=== PATIENT | male | born 1970 | race American Indian/Alaskan Native ===

== ENCOUNTER 2018-05-30 08:11 | Emergency (ER) | payer SELFPAY ==
[2018-05-30 08:28] VITALS: BP 176/87
[2018-05-30] MEDS ORDERED: NACL 0.9% 1000 ML 1,000 ML IV ONE (08:29)
[2018-05-30 09:07] LABS: Basophils % (Auto) 0.4 % (0.0-1.8); Eosinophils # (Auto) 0.1 K/mm3 (0.0-0.4); Eosinophils % (Auto) 1.8 % (0.0-4.3); Hematocrit 43.6 % (35.5-45.6); Hemoglobin 14.4 gm/dl (11.8-15.2); Lymphocytes # (Auto) 1.3 K/mm3 (1.2-5.4); Lymphocytes % (Auto) 18.1 % (13.4-35.0); Mean Corpuscular HGB Conc 33 % (32-34); Mean Corpuscular Hemoglobin 31 pg (28-32); Mean Corpuscular Volume 94 fl (84-94); Monocytes # (Auto) 0.7 K/mm3 (0.0-0.8); Monocytes % (Auto) 9.5 % (0.0-7.3); Platelet Count 249 K/mm3 (140-440); Red Blood Count 4.62 M/mm3 (3.65-5.03); Red Cell Distribution Width 13.1 % (13.2-15.2)
[2018-05-30 09:19] LABS: Bilirubin,Urine NEG (Negative); Blood,Urine NEG (Negative); Color,Urine Yellow (Yellow); Protein,Urine <15 mg/dL mg/dL (Negative); Urobilinogen,Urine < 2.0 mg/dL (<2.0); WBC,Urine < 1.0 /HPF (0.0-6.0)
[2018-05-30 09:21] LABS: Alanine Aminotransferase 19 units/L (7-56); Albumin 4.4 g/dL (3.9-5); BUN/Creatinine Ratio 19; Blood Urea Nitrogen 13 mg/dL (9-20); Calcium 9.9 mg/dL (8.4-10.2); Hemolysis Index 11
[2018-05-30] MEDS ORDERED: TORADOL IM ONE (09:49)
[2018-05-30] MEDS ORDERED: ZESTRIL PO ONE (09:49)
[2018-05-30] MEDS ORDERED: GLUCOTROL PO ONE (09:49)
[2018-05-30] MEDS ORDERED: ZOFRAN ODT PO ONE (09:50)
--- NOTE | 2018-05-30 10:03 | Emergency Department Report ---
Blank Doc - Documentation Documentation: 48-year-old male presents to the hospital complains of right upper quadrant abdominal pain since last name. Pain is Sharp, intermittent with associated nausea. No other associated factors reported. No surgical history. History of "gallbladder issues" but denies history of gallstones. Patient did not take his glipizide and lisinopril this a.m. Right upper quadrant abdominal tenderness Labs reviewed Meds ordered: Toradol 60 mg IM, Zofran, glipizide 10 mg, lisinopril 10 mg Abdominal ultrasound ordered Mid-level to follow
--- NOTE | 2018-05-30 10:29 | Ultrasound Report ---
Abdominal sonogram: History: Right upper quadrant pain. Findings: Fatty liver. No intrahepatic or extrahepatic duct dilatation. Common bile duct is diameter 4.4 mm. Gallbladder wall thickness 2.2 mm. Sludge within contracted gallbladder. Small calculus cannot be excluded. Right kidney 12.8 x 5.9 x 6.2 cm. Cortical thickness 1.9 cm. Left kidney 12.1 x 5.5 x 5.9 cm. Cortical thickness 2.2 cm. Spleen not visualized due to bowel gas. Pancreas obscured by bowel gas. Impression: Thick bile or sludge within the contracted gallbladder. Fatty liver.
--- NOTE | 2018-05-30 11:05 | Emergency Department Report ---
ED Abdominal Pain HPI - General Chief Complaint: Abdominal Pain Stated Complaint: PAIN ON RIGHT SIDE Time Seen by Provider: 05/30/18 09:42 Source: patient Mode of arrival: Ambulatory Limitations: No Limitations - History of Present Illness Initial Comments: This is a 48-year-old -Togol[place] male that presents with right upper quadrant abdominal pain since last night. Patient states pain is sharp and intermittent and right upper quadrant. He has a history of hypertension and diabetes type 2. Patient states he had symptoms similar to this a couple years ago and he think it was related to gallbladder. Patient reports having nausea without vomiting. Denies chest pain, fever, shortness of breath, burning sensation, and diarrhea. Severity scale (0 -10): 8 - Related Data Previous Rx's Medication Instructions Recorded Last Taken Type Naproxen [Naprosyn] 500 mg PO BID #15 tablet 05/30/18 Unknown Rx Allergies Allergy/AdvReac Type Severity Reaction Status Date / Time No Known Allergies Allergy Verified 05/30/18 09:42 ED Review of Systems ROS: Stated complaint: PAIN ON RIGHT SIDE Other details as noted in HPI ED Past Medical Hx - Past Medical History Hx Hypertension: Yes Hx Diabetes: Yes - Surgical History Past Surgical History?: No - Social History Smoking Status: Former Smoker Substance Use Type: None - Medications Home Medications: Home Medications Medication Instructions Recorded Confirmed Last Taken Type Naproxen [Naprosyn] 500 mg PO BID #15 tablet 05/30/18 Unknown Rx ED Physical Exam - General Limitations: No Limitations ED Course Vital Signs 05/30/18 05/30/18 08:25 11:00 Temperature 98.3 F Pulse Rate 95 H Respiratory 16 16 Rate Blood Pressure 176/87 O2 Sat by Pulse 96 Oximetry ED Medical Decision Making - Lab Data Result diagrams: 05/30/18 08:46 05/30/18 08:46 - Radiology Data Radiology results: report reviewed Abdominal sonogram: History: Right upper quadrant pain. Findings: Fatty liver. No intrahepatic or extrahepatic duct dilatation. Common bile duct is diameter 4.4 mm. Gallbladder wall thickness 2.2 mm. Sludge within contracted gallbladder. Small calculus cannot be excluded. Right kidney 12.8 x 5.9 x 6.2 cm. Cortical thickness 1.9 cm. Left kidney 12.1 x 5.5 x 5.9 cm. Cortical thickness 2.2 cm. Spleen not visualized due to bowel gas. Pancreas obscured by bowel gas. Impression: Thick bile or sludge within the contracted gallbladder. Fatty liver. - Medical Decision Making Thick bile or sludge within the contracted gallbladder. Fatty liver. Critical care attestation.: If time is entered above; I have spent that time in minutes in the direct care of this critically ill patient, excluding procedure time. ED Disposition Clinical Impression: Right upper quadrant abdominal pain, Gallbladder stone with nonacute cholecystitis Disposition: TO HOME OR SELFCARE Is pt being admited?: No Does the pt Need Aspirin: No Condition: Stable Instructions: Biliary Colic (ED), Acute Nausea and Vomiting (ED), Acute Abdominal Pain (ED) Additional Instructions: Follow-up with general surgery. Prescriptions: Naproxen [Naprosyn] 500 mg PO BID #15 tablet Referrals: CARLEY LE MD [Staff Physician] - 3-5 Days [facility] [Provider Group] - 3-5 Days Forms: Work/School Release Form(ED) Time of Disposition: 11:14 Print Language: BELARUSIAN
== END 2018-05-30 11:20 | disposition home or self-care (01) ==
LOC: ED 08:11
DX: K80.60 Calculus of gallbladder and bile duct with cholecystitis, unspecified, without obstruction (principal); I10 Essential (primary) hypertension; E11.9 Type 2 diabetes mellitus without complications; Z87.891 Personal history of nicotine dependence
CPT/HCPCS: 36415; 76700; 80053; 81001; 83690; 85025; 96372; 99284; J1885; Q0162

== ENCOUNTER 2020-06-14 06:00 | Inpatient (IN) | payer SELFPAY ==
[2020-06-14 08:39] LABS: Basophils % (Auto) 0.4 % (0.0-1.8); Eosinophils # (Auto) 0.1 K/mm3 (0.0-0.4); Eosinophils % (Auto) 1.4 % (0.0-4.3); Hematocrit 43.7 % (35.5-45.6); Hemoglobin 14.3 gm/dl (11.8-15.2); Lymphocytes # (Auto) 1.5 K/mm3 (1.2-5.4); Lymphocytes % (Auto) 19.8 % (13.4-35.0); Mean Corpuscular HGB Conc 33 % (32-34); Mean Corpuscular Volume 96 fl (84-94); Monocytes # (Auto) 0.8 K/mm3 (0.0-0.8); Monocytes % (Auto) 10.9 % (0.0-7.3); Platelet Count 258 K/mm3 (140-440); Red Blood Count 4.55 M/mm3 (3.65-5.03); Red Cell Distribution Width 13.2 % (13.2-15.2)
[2020-06-14 08:47] LABS: INR 0.91 (0.87-1.13)
[2020-06-14 08:49] LABS: Partial Thromboplastin Time 27.8 Sec. (24.2-36.6)
[2020-06-14 09:03] LABS: Alanine Aminotransferase 18 units/L (7-56); Albumin 4.2 g/dL (3.9-5)
--- NOTE | 2020-06-14 09:04 | XRay Report ---
CHEST 1 VIEW INDICATION / CLINICAL INFORMATION: hypertension,cp. COMPARISON: None available. FINDINGS: SUPPORT DEVICES: None. HEART / MEDIASTINUM: No significant abnormality. LUNGS / PLEURA: No significant pulmonary or pleural abnormality. No pneumothorax. ADDITIONAL FINDINGS: No significant additional findings. IMPRESSION: 1. No acute findings. Signer Name: Jhony Baker MD Signed: 06/14/2020 9:00 AM Workstation Name: [id number]
--- NOTE | 2020-06-14 09:04 | Emergency Department Report ---
ED Chest Pain HPI - General Chief Complaint: Back Pain/Injury Stated Complaint: BACK PAIN Time Seen by Provider: 06/14/20 08:01 Source: patient Mode of arrival: Ambulatory Limitations: No Limitations - History of Present Illness Initial Comments: This is a 50-year-old male who was triaged as back pain. On my encounter he clearly has anterior chest pain which he describes as sharp and radiating to the left subscapular area. He states he has had pain intermittently for 1 week. He is not complaining of pain at the time of my encounter or on my reassessment. He does not describe pain as pleuritic. He does not describe any respiratory symptoms. He does not relate any acute sweating, nausea, vomiting or cough. He has had no recent travel. He has significant risk factors for coronary artery disease to include diabetes and hypertension. He takes metformin and lisinopril. He denies a family history of VTE or CAD. He states he had a stress test a very long time ago. MD Complaint: chest pain -: week(s) Onset: during rest Pain Location: substernal Pain Radiation: back (As above) Severity: moderate Quality: sharp Improves With: nothing Worsens With: nothing re: denies: nausea, vomting, diaphoresis Other Symptoms: denies: cough, fever, syncope - Related Data Previous Rx's Medication Instructions Recorded Last Taken Type Naproxen [Naprosyn] 500 mg PO BID #15 tablet 05/30/18 Unknown Rx Allergies Allergy/AdvReac Type Severity Reaction Status Date / Time No Known Allergies Allergy Verified 05/30/18 09:42 Heart Score - HEART Score History: Moderately suspicious EKG: Non-specific Age: 45-65 Risk factors: > 3 risk factors or hx of atherosclerotic disease Troponin: < normal limit HEART Score: 5 - Critical Actions Critical Actions: 4-6 pts:12-16.6% risk of adverse cardiac event. Should be admitted ED Review of Systems ROS: Stated complaint: BACK PAIN Other details as noted in HPI Constitutional: denies: chills, fever Eyes: denies: eye pain, eye discharge, vision change ENT: denies: ear pain, throat pain Respiratory: denies: cough, shortness of breath, wheezing Cardiovascular: as per HPI, chest pain. denies: palpitations Endocrine: no symptoms reported Gastrointestinal: denies: abdominal pain, nausea, diarrhea Genitourinary: denies: urgency, dysuria Musculoskeletal: as per HPI, back pain. denies: joint swelling, arthralgia Skin: denies: rash, lesions Neurological: denies: headache, weakness, paresthesias Psychiatric: denies: anxiety, depression Hematological/Lymphatic: denies: easy bleeding, easy bruising ED Past Medical Hx - Past Medical History Previous Medical History?: Yes Hx Hypertension: Yes Hx Diabetes: Yes - Surgical History Past Surgical History?: Yes Additional Surgical History: Back - Social History Smoking Status: Current Every Day Smoker Substance Use Type: Alcohol - Medications Home Medications: Home Medications Medication Instructions Recorded Confirmed Last Taken Type Naproxen [Naprosyn] 500 mg PO BID #15 tablet 05/30/18 Unknown Rx ED Physical Exam - General Limitations: No Limitations General appearance: alert, in no apparent distress - Head Head exam: Present: atraumatic, normocephalic - Eye Eye exam: Present: normal appearance. Absent: scleral icterus - ENT ENT exam: Present: mucous membranes moist - Neck Neck exam: Present: normal inspection - Respiratory Respiratory exam: Present: normal lung sounds bilaterally. Absent: respiratory distress - Cardiovascular Cardiovascular Exam: Present: regular rate, normal rhythm. Absent: systolic murmur, diastolic murmur, rubs, gallop - GI/Abdominal GI/Abdominal exam: Present: soft, normal bowel sounds. Absent: distended, tenderness, guarding, rebound, rigid - Rectal Rectal exam: Present: deferred - Extremities Exam Extremities exam: Present: normal inspection. Absent: pedal edema, calf tenderness - Back Exam Back exam: Present: normal inspection. Absent: CVA tenderness (R), CVA tenderness (L) - Neurological Exam Neurological exam: Present: alert, oriented X3, CN II-XII intact. Absent: motor sensory deficit - Psychiatric Psychiatric exam: Present: normal affect, normal mood - Skin Skin exam: Present: warm, dry, intact, normal color. Absent: rash ED Course Vital Signs 06/14/20 06/14/20 06/14/20 06:11 08:40 08:45 Temperature 98.6 F Pulse Rate 97 H 89 94 H Respiratory 18 16 16 Rate Blood Pressure 167/98 179/104 O2 Sat by Pulse 98 97 99 Oximetry 06/14/20 06/14/20 06/14/20 09:00 09:15 09:40 Temperature Pulse Rate 88 89 98 H Respiratory 21 20 Rate Blood Pressure 171/100 174/100 174/98 O2 Sat by Pulse 97 98 Oximetry - Reevaluation(s) Reevaluation #1: No complaint of chest pain. Blood pressure still high after Nitropaste. Given aspirin. Discussed with hospitalist. Dr. Santos to admit. 06/14/20 10:41 MANPREET score - Manpreet Score Age > 65: (0) No Aspirin use within the Past 7 Days: (0) No 3 or more CAD Risk Factors: (1) Yes 2 or more Angina events in past 24 hrs: (0) No Known CAD with more than 50% Stenosis: (0) No Elevated Cardiac Markers: (0) No ST Deviation Greater than 0.5mm: (1) Yes MANPREET Score: 2 ED Medical Decision Making - Lab Data Result diagrams: 06/14/20 08:26 Laboratory Results - last 24 hr 06/14/20 06/14/20 06/14/20 08:26 08:26 08:26 WBC 7.4 RBC 4.55 Hgb 14.3 Hct 43.7 MCV 96 H MCH 31 MCHC 33 RDW 13.2 Plt Count 258 Lymph % (Auto) 19.8 [place] % (Auto) 10.9 H Eos % (Auto) 1.4 Baso % (Auto) 0.4 Lymph # 1.5 [place] # 0.8 Eos # 0.1 Baso # 0.0 Seg Neutrophils % 67.5 Seg Neutrophils # 5.0 PT 12.3 INR 0.91 APTT 27.8 D-Dimer 135.00 Magnesium 2.10 Total Bilirubin 0.30 Direct Bilirubin < 0.2 Indirect Bilirubin 0.1 AST 14 ALT 18 Alkaline Phosphatase 75 CK-MB (CK-2) 2.0 Troponin T < 0.010 NT-Pro-B Natriuret Pep 68.09 Total Protein 6.7 Albumin 4.2 Albumin/Globulin Ratio 1.7 - EKG Data -: EKG Interpreted by Me EKG shows normal: sinus rhythm, axis, intervals, QRS complexes, ST-T waves Rate: normal - EKG Data Interpretation: no acute changes, other (Patient had J-point elevation without reciprocal changes in the anterior leads. This may be due to lead placement. And is nonspecific) - Radiology Data Radiology results: report reviewed (Normal chest x-ray), image reviewed Critical care attestation.: If time is entered above; I have spent that time in minutes in the direct care of this critically ill patient, excluding procedure time. ED Disposition Clinical Impression: Uncontrolled hypertension Chest pain Qualifiers: Chest pain type: unspecified Qualified Code(s): R07.9 - Chest pain, unspecified Hyperglycemia due to type 2 diabetes mellitus Qualifiers: Diabetes mellitus terminal supervisor insulin use: without terminal supervisor use Qualified Code(s): E11.65 - Type 2 diabetes mellitus with hyperglycemia Disposition: OP ADMIT IP TO THIS HOSP Is pt being admited?: Yes Does the pt Need Aspirin: Yes Condition: Stable Instructions: Chest Pain (ED), Diabetes Mellitus Type 2 in Adults (ED), Hypertension (ED) Time of Disposition: 10:44
[2020-06-14] MEDS ORDERED: ASPIRIN 325 MG TAB PO ONE (09:25)
[2020-06-14] MEDS ORDERED: NITROGLYCERIN 2% OINT 1 GM TP ONE (09:25)
[2020-06-14 09:28] LABS: Bilirubin,Direct < 0.2 mg/dL (0-0.2)
[2020-06-14] MEDS ORDERED: INSULIN REGULAR, HUMAN 100 UNITS/1 ML IV ONE (10:43)
--- NOTE | 2020-06-14 12:36 | History and Physical Report ---
History of Present Illness Date of examination: 06/14/20 Date of admission: 06/14/20 10:40 Chief complaint: Chest pain, left shoulder pain, and back pain for the last 3 to 4 days History of present illness: 50-year-old male patient with significant past medical history of hypertension diabetes mellitus on medications presented to the emergency room with Left-sided chest pain and left shoulder and subscapular pain intermittently for the last 1 week. Patient grades his pain between 7-8 over 10 at its peak, intermittent lasts about 5 to 10 minutes, sometimes associated with movement Radiates from chest to left shoulder ,not associated with nausea vomiting or yazmin phoresis. Patient denies shortness of breath Never had similar symptoms in the past, no history of trauma. Patient denies orthopnea or paroxysmal nocturnal dyspnea Has history of cigar smoking, denies family history of coronary artery disease Initial work-up in the ED for set of cardiac enzymes negative, chest x-ray no acute abnormality noted Past History Past Medical History: diabetes, hypertension Past Surgical History: Other (Back surgery) Social history: lives with family, smoking (Cigar smoking every day), alcohol abuse (Social issues). denies: prescription drug abuse Family history: hypertension Medications and Allergies Allergies Allergy/AdvReac Type Severity Reaction Status Date / Time No Known Allergies Allergy Verified 05/30/18 09:42 Home Medications Medication Instructions Recorded Confirmed Last Taken Type glipiZIDE XL [Glucotrol Xl] 10 mg PO QDAY 06/14/20 06/14/20 1 Day Ago History ~06/13/20 AtorvaSTATin [Lipitor] 40 mg PO QHS #30 tablet 06/15/20 Unknown Rx Ibuprofen [Motrin 400 MG tab] 400 mg PO Q8H PRN #30 tablet 06/15/20 Unknown Rx carvediloL [Coreg] 12.5 mg PO BID #60 tablet 06/15/20 Unknown Rx lisinopriL [Zestril TAB] 20 mg PO QDAY #30 06/15/20 Unknown Rx Review of Systems Constitutional: no weight loss, no weight gain, no fever, no chills Ears, nose, mouth and throat: no nasal congestion, no nasal discharge Cardiovascular: chest pain, no orthopnea, no palpitations, no rapid/irregular heart beat Respiratory: no cough, no shortness of breath Gastrointestinal: no abdominal pain, no nausea, no vomiting Genitourinary Male: no dysuria, no hematuria Musculoskeletal: myalgias, other (Shoulder pain), no arthritis Integumentary: no rash, no lesions Neurological: no seizures, no syncope Psychiatric: no anxiety, no depression Endocrine: no cold intolerance, no heat intolerance Hematologic/Lymphatic: no easy bruising, no easy bleeding Allergic/Immunologic: no urticaria, no allergic rhinitis Exam - Constitutional Vitals: Temp Pulse Resp BP Pulse Ox 98.6 F 95 H 23 159/90 97 06/14/20 06:11 06/14/20 12:15 06/14/20 12:15 06/14/20 12:15 06/14/20 12:15 General appearance: Present: no acute distress, well-nourished, obese - EENT Eyes: Present: PERRL, EOM intact - Neck Neck: Present: supple, normal ROM - Respiratory Respiratory effort: normal Respiratory: bilateral: diminished, negative: rales, rhonchi, wheezing - Cardiovascular Rhythm: regular Heart Sounds: Present: S1 & S2 - Extremities Extremities: no ischemia, No edema - Abdominal General gastrointestinal: Present: soft, non-tender, non-distended, normal bowel sounds - Integumentary Integumentary: Present: clear, warm - Musculoskeletal Musculoskeletal: strength equal bilaterally - Psychiatric Psychiatric: appropriate mood/affect, cooperative - Neurologic Neurologic: moves all extremities HEART Score - HEART Score EKG: Non-specific Age: 45-65 Risk factors: > 3 risk factors or hx of atherosclerotic disease Troponin: Troponin T < 0.010 ng/mL (0.00-0.029) 06/14/20 08:26 Troponin: < normal limit - Critical Actions Critical Actions: 4-6 pts:12-16.6% risk of adverse cardiac event. Should be admitted Results - Labs CBC & Chem 7: 06/14/20 08:26 Labs: Abnormal lab results 06/14/20 06/14/20 Range/Units 08:26 11:07 MCV 96 H (84-94) fl [place] % (Auto) 10.9 H (0.0-7.3) % POC Glucose 222 H (70-105) Assessment and Plan --Chest pain; with multiple risk factors, evaluate for acute coronary syndrome Tobacco use, diabetes, hypertension, male >50 years of age, dyslipidemia Serial cardiac enzyme, EKG Echocardiogram for LV function ejection fraction Possible stress test tomorrow due to risk factors Cardiology consult --Hypertension; moderate control Continue lisinopril, PRN medications --Type 2 diabetes mellitus; Accu-Chek sliding scale coverage ADA diet Hemoglobin A1c, oral hypoglycemics, insulin as needed --Dyslipidemia; statin, low-cholesterol diet --Ongoing tobacco use[cigars] smoking cessation Advised nicotine patch as needed --Obese; BMI 33.9 Needs weight reduction when medically stable Closely monitor patient and adjust management as needed Follow cardiology evaluation, follow stress test
[2020-06-14] MEDS ORDERED: NITROGLYCERIN 0.4 MG TAB SUBL SL PRN (12:57)
[2020-06-14] MEDS ORDERED: MORPHINE 2 MG/1 ML INJ IV PRN (12:57)
[2020-06-14 14:01] LABS: Creatine Kinase MB 2.1 ng/mL (0.0-4.0)
[2020-06-14 14:03] LABS: Chol/HDL Ratio 4.41 %; HDL Cholesterol 43 mg/dL (40-59); LDL Cholesterol,Direct 134 mg/dL (50-130)
[2020-06-14] MEDS: INSULIN LISPRO 100 UNIT/ML SUB-Q SCH ×2 (16:29→21:36)
[2020-06-14] MEDS ORDERED: KETOROLAC 30 MG/1 ML INJ IV PRN (20:37)
[2020-06-14] MEDS: carvediloL 6.25 MG TAB PO SCH (21:02)
[2020-06-14] MEDS ORDERED: ENOXAPARIN 40 MG/0.4 ML INJ SUB-Q SCH (22:00)
[2020-06-15] MEDS: INSULIN LISPRO 100 UNIT/ML SUB-Q SCH ×2 (07:30→12:25)
[2020-06-15] MEDS ORDERED: REGADENOSON 0.4 MG/5 ML INJ IV ONE (07:58)
--- NOTE | 2020-06-15 09:43 | Consultation ---
History of Present Illness Consult date: 06/15/20 Consult reason: chest pain History of present illness: 50-year-old male patient with significant past medical history of hypertension diabetes mellitus on medications presented to the emergency room with Left-sided chest pain and left shoulder and subscapular pain intermittently for the last 1 week. Patient grades his pain between 7-8 over 10 at its peak, intermittent lasts about 5 to 10 minutes, sometimes associated with movement Radiates from chest to left shoulder ,not associated with nausea vomiting or diaphoresis. Patient denies shortness of breath Never had similar symptoms in the past, no history of trauma. Patient denies orthopnea or paroxysmal nocturnal dyspnea Has history of cigar smoking, denies family history of coronary artery disease. Patient in stress lab for stress test,no chest pain now.EKG is unremarkable. Past History Past Medical History: diabetes, hypertension Past Surgical History: Other (Back surgery) Social history: lives with family, smoking (Cigar smoking every day), alcohol abuse (Social issues). denies: prescription drug abuse Family history: hypertension Medications and Allergies Allergies Allergy/AdvReac Type Severity Reaction Status Date / Time No Known Allergies Allergy Verified 05/30/18 09:42 Home Medications Medication Instructions Recorded Confirmed Last Taken Type glipiZIDE XL [Glucotrol Xl] 10 mg PO QDAY 06/14/20 06/14/20 1 Day Ago History ~06/13/20 lisinopriL [Zestril TAB] 10 mg PO QDAY 06/14/20 06/14/20 1 Day Ago History ~06/13/20 Active Meds: Active Medications Aspirin (Aspirin) 325 mg PO QDAY [facility] Atorvastatin Calcium (Lipitor) 40 mg PO QHS [facility] Last Admin: 06/14/20 21:02 Dose: 40 mg Documented by: Carvedilol (Coreg) 6.25 mg PO BID [facility] Last Admin: 06/14/20 21:02 Dose: 6.25 mg Documented by: Enoxaparin Sodium (Enoxaparin) 40 mg SUB-Q QDAY@2200 [facility] Last Admin: 06/14/20 21:03 Dose: 40 mg Documented by: Glipizide (Glucotrol Xl) 10 mg PO QDAY [facility] Insulin Human Lispro (Humalog) 0 unit SUB-Q [facility]; Protocol Last Admin: 06/14/20 21:36 Dose: 2 unit Documented by: Ketorolac Tromethamine (Toradol) 15 mg IV Q6HR PRN PRN Reason: Pain , Severe (7-10) Stop: 06/20/20 00:00 Last Admin: 06/14/20 21:02 Dose: 15 mg Documented by: Lisinopril (Zestril) 10 mg PO QDAY MICHELLE Morphine Sulfate (Morphine) 2 mg IV Q4H PRN PRN Reason: Pain, Moderate (4-6) Last Admin: 06/14/20 19:55 Dose: 2 mg Documented by: Nitroglycerin (Nitrostat) 0.4 mg SL .Q5MIN PRN PRN Reason: Chest Pain Review of Systems Constitutional: no weight loss Ears, nose, mouth and throat: no ear discharge Cardiovascular: chest pain, no orthopnea, no rapid/irregular heart beat Genitourinary Male: no hematuria Integumentary: no rash Neurological: no seizures Endocrine: no heat intolerance Hematologic/Lymphatic: no easy bleeding Allergic/Immunologic: no urticaria Physical Examination Vital Signs Temp Pulse Resp BP Pulse Ox 98.6 F 97 H 18 167/98 98 06/14/20 06:11 06/14/20 06:11 06/14/20 06:11 06/14/20 06:11 06/14/20 06:11 General appearance: no acute distress HEENT: Positive: PERRL Neck: Positive: neck supple Cardiac: Positive: Reg Rate and Rhythm Lungs: Positive: Normal Exam Neuro: Positive: Grossly Intact Abdomen: Positive: Unremarkable Male genitourinary: Positive: deferred Skin: Positive: Clear Extremities: Absent: edema Results 06/14/20 08:26 Cardiac Enzymes 06/14/20 Range/Units 13:27 CK-MB (CK-2) 2.1 (0.0-4.0) ng/mL Lipids 06/14/20 Range/Units 13:27 Triglycerides 122 (2-149) mg/dL Cholesterol 190 (50-199) mg/dL HDL Cholesterol 43 (40-59) mg/dL Cholesterol/HDL Ratio 4.41 % Laboratory Tests 06/14/20 06/14/20 08:26 13:27 Total Creatine Kinase 113 99 CK-MB (CK-2) 2.0 2.1 CK-MB (CK-2) Rel Index 1.7 2.1 Troponin T < 0.010 < 0.010 LDL Cholesterol Direct 134 H EKG interpretations - Telemetry EKG Rhythm: Sinus Rhythm Normal tracing: normal tracing Assessment and Plan 50 yo afroamerican gentleman with hx. of hypertension,diabetes mellitus and cigar smoking was admitted with back/shoulder pains of few weeks,not related to exertion.EKG showed S.R,unremarkable.Cardiac enzymes including Troponin and CK- MB are in normal range. Patient had iv Lexiscan MPI this AM,results pending. Recommend risk factor modification ,namely control of B.P and lipids in addition to smoking cessation. Etioology of his chest pain is not clear. Patient being followed at [facility]. - Patient Problems (1) Hyperglycemia due to type 2 diabetes mellitus Current Visit: Yes Status: Acute Qualifiers: Diabetes mellitus exterminator helper termite insulin use: without alf use Qualified Code(s): E11.65 - Type 2 diabetes mellitus with hyperglycemia (2) Uncontrolled hypertension Current Visit: Yes Status: Acute (3) Hyperlipidemia Current Visit: Yes Status: Acute (4) Hyperlipidemia LDL goal <70 Current Visit: Yes Status: Acute
[2020-06-15] MEDS ORDERED: LISINOPRIL 10 MG TAB PO SCH (10:00)
[2020-06-15] MEDS ORDERED: ASPIRIN 325 MG TAB PO SCH (10:00)
[2020-06-15] MEDS: carvediloL 6.25 MG TAB PO SCH (12:20)
--- NOTE | 2020-06-15 14:17 | Discharge Summary ---
Providers - Providers Date of Admission: 06/14/20 10:40 Date of discharge: 06/15/20 Attending physician: ROSA BONILLA 06/14/20 17:59 Consult to Physician [CONS] Routine Comment: Consulting Provider: CISCO TORRES Physician Instructions: Reason For Exam: Chest pain/multiple risk factors Primary care physician: [facility], Hospitalization Reason for admission: Chest pain and shoulder pain Condition: Stable Pertinent studies: Chest x-ray no abnormality Echocardiogram; normal ejection fraction, LVH Procedures: Stress test, negative ischemia, normal EF Hospital course: 50-year-old male patient with significant past medical history of hypertension diabetes mellitus on medications presented to the emergency room with Left-sided chest pain and left shoulder and subscapular pain intermittently for the last 1 week. Patient grades his pain between 7-8 over 10 at its peak, intermittent lasts about 5 to 10 minutes, sometimes associated with movement Radiates from chest to left shoulder ,not associated with nausea vomiting or diaphoresis. Patient denies shortness of breath Never had similar symptoms in the past, no history of trauma. Patient denies orthopnea or paroxysmal nocturnal dyspnea Has history of cigar smoking, denies family history of coronary artery disease Patient was admitted symptomatically managed, in view of patient's multiple risk factors stress test was done, negative for ischemia normal ejection fraction Cardiology evaluated advised medical management follow-up outpatient Today patient is comfortable no new complaints vital signs stable physical examination unremarkable Smoking cessation counseling done Discharge diagnosis; --Atypical chest pain; probably noncardiac Musculoskeletal, costochondritis anti-inflammatories and pain medications --Musculoskeletal pain/costochondritis Cause of chest pain, pain medications --Hypertension; moderate control Antihypertensives adjusted, prescriptions given --Type 2 diabetes mellitus; Accu-Chek sliding scale coverage ADA diet Hemoglobin A1c, oral hypoglycemics, insulin as needed --Dyslipidemia; statin, low-cholesterol diet --Ongoing tobacco use[cigars] smoking cessation Advised nicotine patch as needed --Obese; BMI 33.9 Needs weight reduction when medically stable Cleared by cardiology, patient is stable for discharge Disposition: TO HOME OR SELFCARE Time spent for discharge: 32 min Core Measure Documentation - Palliative Care Palliative Care/ Comfort Measures: Not Applicable - Core Measures Any of the following diagnoses?: none Exam - Constitutional Vitals: Temp Pulse Resp BP Pulse Ox 98.0 F 90 20 178/106 97 06/15/20 11:31 06/15/20 12:59 06/15/20 11:31 06/15/20 11:31 06/15/20 11:31 General appearance: Present: no acute distress, well-nourished - EENT Eyes: Present: PERRL, EOM intact - Neck Neck: Present: supple, normal ROM - Respiratory Respiratory effort: normal Respiratory: bilateral: diminished, negative: rales, rhonchi, wheezing - Cardiovascular Rhythm: regular Heart Sounds: Present: S1 & S2 - Extremities Extremities: no ischemia, No edema Extremity abnormal: edema - Abdominal General gastrointestinal: Present: soft, non-tender, non-distended, normal bowel sounds - Integumentary Integumentary: Present: clear, warm - Musculoskeletal Musculoskeletal: strength equal bilaterally - Psychiatric Psychiatric: appropriate mood/affect, cooperative - Neurologic Neurologic: moves all extremities Plan Activity: no restrictions Diet: diabetic, other (Cardiac diet) Special Instructions: smoking cessation Additional Instructions: Advised smoking cessation, nicotine patch as needed. If you have worsening symptoms contact MD or go to emergency room. Advised to follow plate maker in 1 to 2 weeks should you have recurrent symptoms of chest pain Follow up with: ROSARIO TYLERSARATOGA MD [facility] [Primary Care Provider] - 7 Days KEYUR MCKENZIE MD [Staff Physician] - 14 Days Prescriptions: carvediloL [Coreg] 12.5 mg PO BID #60 tablet AtorvaSTATin [Lipitor] 40 mg PO QHS #30 tablet Ibuprofen [Motrin 400 MG tab] 400 mg PO Q8H PRN #30 tablet PRN Reason: Pain, Moderate (4-6) lisinopriL [Zestril TAB] 20 mg PO QDAY #30
[2020-06-15 17:22] VITALS: BP 171/98
== END 2020-06-15 16:50 | disposition home or self-care (01) | DRG 206 ==
LOC: ED 06:00 → 4A 10:40
PROVIDERS: ADMIT Internal Medicine; ATTEND Internal Medicine
DX: M94.0 Chondrocostal junction syndrome [Tietze] (principal); I10 Essential (primary) hypertension; R07.89 Other chest pain; E78.5 Hyperlipidemia, unspecified; E66.9 Obesity, unspecified; E11.65 Type 2 diabetes mellitus with hyperglycemia; F17.200 Nicotine dependence, unspecified, uncomplicated; Z71.6 Tobacco abuse counseling; Z82.49 Family history of ischemic heart disease and other diseases of the circulatory system; Z68.33 Body mass index [BMI] 33.0-33.9, adult; Z79.899 Other long term (current) drug therapy; Z72.89 Other problems related to lifestyle
CPT/HCPCS: 36415; 71045; 78452; 80061; 80076; 82550; 82553; 82962; 83735; 83880; 84484; 85025; 85379; 85610; 85730; 93005; 93017; 93306; G0378; A9270-GY; A9502; J1650; J1815; J1885; J2270; J2785

== ENCOUNTER 2021-07-06 04:18 | Emergency (ER) | payer SELFPAY ==
[2021-07-06 04:57] VITALS: BP 174/87
[2021-07-06 06:22] LABS: Basophils % (Auto) 0.3 % (0.0-1.8); Eosinophils # (Auto) 0.1 K/mm3 (0.0-0.4); Eosinophils % (Auto) 1.7 % (0.0-4.3); Hematocrit 49.5 % (35.5-45.6); Hemoglobin 16.4 gm/dl (11.8-15.2); Lymphocytes # (Auto) 0.9 K/mm3 (1.2-5.4); Lymphocytes % (Auto) 11.7 % (13.4-35.0); Mean Corpuscular HGB Conc 33 % (32-34); Mean Corpuscular Volume 99 fl (84-94); Monocytes % (Auto) 11.9 % (0.0-7.3); Platelet Count 233 K/mm3 (140-440); Red Blood Count 5.02 M/mm3 (3.65-5.03); Red Cell Distribution Width 13.5 % (13.2-15.2)
--- NOTE | 2021-07-06 06:43 | XRay Report ---
CHEST 2 VIEWS INDICATION / CLINICAL INFORMATION: SVETLANA. Chest pain FINDINGS: SUPPORT DEVICES: None. HEART / MEDIASTINUM: No significant abnormality. LUNGS / PLEURA: No significant pulmonary or pleural abnormality. No pneumothorax. ADDITIONAL FINDINGS: No significant additional findings. IMPRESSION: 1. No acute findings. Signer Name: Jhony Baker MD Signed: 07/06/2021 6:39 AM Workstation Name: [id number]
[2021-07-06 08:03] LABS: Alanine Aminotransferase 15 units/L (7-56); Albumin 4.3 g/dL (3.9-5); BUN/Creatinine Ratio 12; Blood Urea Nitrogen 12 mg/dL (9-20); Calcium 9.6 mg/dL (8.4-10.2); Hemolysis Index 7
--- NOTE | 2021-07-09 13:22 | Electrocardiograph Report ---
[facility] Test Date: 2021-07-06 Test Time: 05:41:16 Pat Name: SEAN ZHANG Department: Room: Gender: M Outpatient Case Manager: NURSE : 1970 Requested By: SHELBIE PHILIP Order Number: [id number] Reading MD: Domo Su Measurements Intervals [place] Rate: 101 P: 59 MO: 155 QRS: 28 QRSD: 76 T: 57 QT: 347 QTc: 451 Interpretive Statements Gender not entered, assumed to be male for purpose of ECG interpretation Sinus tachycardia Probable left atrial enlargement Consider old anteroseptal infarct No previous ECG available for comparison Electronically Signed On 07-09-2021 13:22:32 EDT by Domo Su
== END 2021-07-06 17:30 | disposition home or self-care (01) ==
LOC: ED 04:18
DX: R06.00 Dyspnea, unspecified (principal); Z53.21 Procedure and treatment not carried out due to patient leaving prior to being seen by health care provider
CPT/HCPCS: 36415; 71046; 80053; 84484; 85025; 93005